=== PATIENT | male | born 1965 | race Caucasian/White ===

== ENCOUNTER 2017-08-14 10:39 | Emergency (ER) | payer OTHER ==
[~2017-08-14] VITALS: Ht 185.4 cm; Wt 99.8 kg
[2017-08-14 10:46] VITALS: BP 151/75
--- NOTE | 2017-08-14 10:52 | NUR ---
PT AMBULATED TO ER [facility]
--- NOTE | 2017-08-14 11:11 | NUR ---
AT BEDSIDE, PT CAME BACK FROM [facility]
--- NOTE | 2017-08-14 11:13 | NUR ---
PRESENT TO ER C/O LT KNEE PAIN x 2 WEEKS. PT STATES HE FELL OF THE STAIRS AND GOT HIS KNEE CAUGHT UP UNDER HIM. PT DENIES KO OR LOC. HX: ASTHMA, BACK SURGERY 1996 MEDS: [facility] @ LAST NIGHT . DENIES N/V/D; SKIN IS PINK/WARM/DRY; AAOX4 WITH EVEN AND STEADY GAIT; LUNGS CLEAR BL; HR EVEN AND REGULAR; PT DENIES ANY FEVER, CP, SOB, OR COUGH AT THIS TIME; PATIENT STATES PAIN OF 8/10 AT THIS TIME; PATIENT POSITIONED FOR COMFORT; HOB ELEVATED; BEDRAILS UP X2; BED DOWN.
[2017-08-14] MEDS ORDERED: ACETAMINOPHEN 325 MG TAB PO ONE (11:15)
[2017-08-14] MEDS ORDERED: KETOROLAC 30 MG/ML VIAL IM ONE (11:15)
--- NOTE | 2017-08-14 11:34 | NUR ---
DR. DE JESUS AT BEDSIDE AGAIN
[2017-08-14] MEDS ORDERED: methylPREDNISolone SS 125 MG in WATER STERILE 2 ML IM ONE (11:35)
[2017-08-14] MEDS ORDERED: methylPREDNISolone SS 125 MG/2 ML VIAL ONE (11:39)
[2017-08-14 11:51] VITALS: BP 147/90
--- NOTE | 2017-08-14 11:52 | NUR ---
Patient discharged with v/s stable. Written and verbal after care instructions given and explained. Patient alert, oriented and verbalized understanding of instructions. Ambulatory with steady gait. All questions addressed prior to discharge. ID band removed. Patient advised to follow up with PMD. Rx of TOPICAL CREAM,ACETAMINOPHEN AND NAPROSYN given. Patient educated on indication of medication including possible reaction and side effects. Opportunity to ask questions provided and answered.
== END 2017-08-14 11:52 | disposition home or self-care (01) ==
LOC: MED 10:39
DX: S83.92XA Sprain of unspecified site of left knee, initial encounter (principal); W10.9XXA Fall (on) (from) unspecified stairs and steps, initial encounter; Y93.89 Activity, other specified; Y92.89 Other specified places as the place of occurrence of the external cause; Y99.8 Other external cause status
CPT/HCPCS: 29505; 73562; 96372; 99284; J1885; J2930